=== PATIENT | male | born 1965 | race Caucasian/White ===

== ENCOUNTER 2018-05-17 08:41 | Emergency (ER) | payer BC ==
[2018-05-17 09:12] VITALS: BP 168/86
--- NOTE | 2018-05-17 10:12 | UC ---
Shoulder Pain HPI - HPI Summary HPI Summary: right shoulder pain x 3 days pain is severe , 8 out of 10 no radiation of the pain worse with any shoulder movements , better with rest and ice no known injury , went bowling on Wednesday and the pain was sever the next day - History of Current Complaint Chief Complaint: UCUpperExtremity Stated Complaint: RIGHT ARM PAIN Time Seen by Provider: 05/17/18 09:21 Hx Obtained From: Patient Onset/Duration: Gradual Onset, Lasting Days - 3, Still Present Timing: Constant Severity Initially: Moderate Severity Currently: Severe Pain Intensity: 8 Character: Sharp, Aching Aggravating Factor(s): Movement, Lifting, Flexion, Extension Alleviating Factor(s): Rest, Ice Associated Signs And Symptoms: Positive: Weakness. Negative: Swelling, Redness , Bruising, Fever, Numbness/Tingling - Allergies/Home Medications Allergies/Adverse Reactions: Allergies Allergy/AdvReac Type Severity Reaction Status Date / Time No Known Allergies Allergy Verified 05/17/18 09:08 PMH/Surg Hx/FS Hx/Imm Hx Previously Healthy: Yes - Surgical History Surgical History: None - Family History Known Family History: Negative: Diabetes - Social History Alcohol Use: Occasionally Alcohol Amount: few times a week Substance Use Type: None Smoking Status (MU): Never Smoked Tobacco Review of Systems All Other Systems Reviewed And Are Negative: Yes Constitutional: Positive: Negative Skin: Positive: Negative Eyes: Positive: Negative ENT: Positive: Negative Is Patient Immunocompromised?: No Physical Exam Triage Information Reviewed: Yes Appearance: Well-Appearing, Well-Nourished, Pain Distress Vital Signs: Initial Vital Signs Temp 97.7 F 05/17/18 09:02 Pulse 53 05/17/18 09:02 Resp 17 05/17/18 09:02 BP 168/86 05/17/18 09:02 Pulse Ox 98 05/17/18 09:02 Vital Signs Reviewed: Yes Eye Exam: Normal Eyes: Positive: Conjunctiva Clear ENT: Positive: Normal ENT inspection, Hearing grossly normal, Pharynx normal Neck: Positive: Supple, Nontender Respiratory: Positive: Chest non-tender, Lungs clear, Normal breath sounds Cardiovascular: Positive: RRR, No Murmur, Pulses Normal Musculoskeletal: Positive: Other: - right shoudler : no swelling, no erythema, + tenderness anterior shoulder , limited ROM due to severe pain Skin Exam: Normal Diagnostics - Laboratory Diagnostic Studies Completed/Ordered: right shoulder xray: IMPRESSION: NO ACUTE OSSEOUS INJURY. IF SYMPTOMS PERSIST, RECOMMEND REPEAT IMAGING. Shoulder Course/Dx - Differential Dx/Diagnosis Provider Diagnosis: Tendonitis of shoulder Discharge - Sign-Out/Discharge Documenting (check all that apply): Patient Departure All imaging exams completed and their final reports reviewed: Yes - Discharge Plan Condition: Stable Disposition: HOME Prescriptions: Naproxen [Naproxen 500 mg tab] 500 mg PO BID #20 tablet Patient Education Materials: Tendinitis (ED) Referrals: Katerin Gaspar PA [Primary Care Provider] - 7 Days Additional Instructions: cont. with rest, ice, Naproxen 500 mg 2 x per day use arm sling for comfort follow up with your pcp in one week if not better - Billing Disposition and Condition Condition: STABLE Disposition: Home
== END 2018-05-17 10:10 | disposition home or self-care (01) ==
LOC: UCCORT 08:41
DX: M75.91 Shoulder lesion, unspecified, right shoulder (principal)
CPT/HCPCS: 99203; G0463